=== PATIENT | female | born 1945 | race Caucasian/White ===

== ENCOUNTER → 2016-12-10 | Outpatient (CLI) | payer OTHER ==
[~2016-12-10] MED LIST: IOPAMIDOL (ISOVUE 370) 100 ML BTL IV ONE
== END ==
LOC: FIMAGING 08:09
PROVIDERS: ATTEND Family Medicine
DX: Z12.31 Encounter for screening mammogram for malignant neoplasm of breast (principal)
CPT/HCPCS: G0202; Q9967

== ENCOUNTER → 2017-02-18 | Outpatient (CLI) | payer OTHER | LOC: FIMAGING 09:04 | PROVIDERS: ATTEND Family Medicine | DX: Z13.820 Encounter for screening for osteoporosis (principal); Z78.0 Asymptomatic menopausal state ==

== ENCOUNTER 2017-08-22 11:53 | Day surgery (SDC) | payer OTHER ==
[2017-08-22] MEDS ORDERED: LR 1,000 ML IV ONE (12:09)
[2017-08-22] MEDS ORDERED: LIDOCAINE 1% 2 ML INJ ID PRN (12:09)
--- NOTE | 2017-08-22 12:43 | PDANEPAE ---
ANE History of Present Illness here for colonoscopy ANE Past Medical History - Cardiovascular History Hx Hypertension: Yes Hx Arrhythmias: No Hx Chest Pain: No Hx Coronary Artery / Peripheral Vascular Disease: No Hx CHF / Valvular Disease: No Hx Palpitations: No Cardiovascular History Comment: hyperlipidemia - Pulmonary History Hx COPD: No Hx Asthma/Reactive Airway Disease: No Hx Recent Upper Respiratory Infection: No Hx Oxygen in Use at Home: No Hx Sleep Apnea: Yes Sleep Apnea Screening Result - Last Documented: Positive Pulmonary History Comment: nan positive- instructed pt to bring cpap to hospital. PE 12/2015 - Neurologic History Hx Cerebrovascular Accident: No Hx Seizures: No Hx Dementia: No - Endocrine History Hx Diabetes: No - Renal History Hx Renal Disorders: No Renal History Comment: one kidney is at 60%. hx of kidney infections. [facility] was told "not to worry about it in 2015" - Liver History Hx Hepatic Disorders: No - Neurological & Psychiatric Hx Hx Neurological and Psychiatric Disorders: No - Cancer History Hx Cancer: No - Congenital Disorder History Hx Congenital Disorders: No - GI History Hx Gastrointestinal Disorders: No - Other Health History Other Health History: wears glasses for driving only. glaucoma - Chronic Pain History Chronic Pain: No - Surgical History Prior Surgeries: Bilateral TKA's. appy. tonsillectomy. urethral surgery ANE Review of Systems Review of systems is: negative Review of Systems: - Exercise capacity Exercise capacity: >=4 METS METS (RN): 4 METS ANE Patient History - Allergies Allergies/Adverse Reactions: No Known Allergies Allergy (Verified 07/26/17 11:39) - Home Medications Home medications: home medication list seen and reviewed Home Medications: Herbals/Supplements -Info Only 12/31/15 [Last Taken 08/15/17] Losartan Potassium [Cozaar 25 mg (*)] 12/31/15 [Last Taken 08/22/17 10:00] Simvastatin [Zocor] 12/31/15 [Last Taken 08/21/17 23:00] Triamterene/Hctz 37.5/25 07/26/17 [Last Taken 08/22/17 10:00] Coumadin 07/27/17 [Last Taken 08/18/17] - NPO status NPO Status: no food or drink >8 hours NPO Since - Liquids (Date): 08/22/17 NPO Since - Liquids (Time): 05:00 NPO Since - Solids (Date): 08/21/17 NPO Since - Solids (Time): 09:00 - Anes Hx Anes Hx: no prior problems - Smoking Hx Smoking Status: Never smoked - Family Anes Hx Family Hx Anesthesia Complications: none ANE Labs/Vital Signs - Vital Signs Vital Signs: reviewed preoperatively; see RN documention for details Blood Pressure: 137/79 Heart Rate: 80 Respiratory Rate: 18 O2 Sat (%): 93 Height: 170.18 cm Weight: 90.265 kg ANE Physical Exam - Airway Neck exam: FROM Mallampati Score: Class 2 - Pulmonary Pulmonary: no respiratory distress - Cardiovascular Cardiovascular: regular rate and rhythym - ASA Status ASA Status: II ANE Anesthesia Plan Anesthesia Plan: GA with mask
--- NOTE | 2017-08-22 13:00 | PDGENHP ---
History & Physical Chief Complaint: phx polyps History of Present Illness: 72 year old female presents for surveillance colonosocpy. Hx of polyps Pertinent Past, Social, Family History: PMHx: blood clots, ht, lipids, SOA. pSurgHx: appy, tonsillectomy. FaMHx: No CRC Relevant Physical Exam: HEENT: anicteric. CV: RRR +s1s2. Lungs: CTAB. Abd: soft, nt, + bs Cardiorespiratory Assessment: ASA 3
[2017-08-22] MEDS ORDERED: PROPOFOL/EMULSION 500 MG/50 ML BOTTLE IV ONE (13:08)
[2017-08-22] MEDS ORDERED: NALOXONE HCL 0.4 MG/ML INJ IVP PRN (13:28)
[2017-08-22] MEDS ORDERED: ONDANSETRON 4 MG/2 ML VIAL IVP PRN (13:28)
[2017-08-22] MEDS ORDERED: ALBUTEROL 3 ML DEYVIAL IH PRN (13:28)
[2017-08-22] MEDS ORDERED: fentaNYL 100 MCG/2 ML INJ IVP PRN (13:28)
[2017-08-22] MEDS ORDERED: HYDROmorphONE/DILAUDID 1 MG/ML INJ IVP PRN (13:28)
[2017-08-22 13:52] VITALS: TEMP 98.8
[2017-08-22 14:18] VITALS: O2SAT 96
--- NOTE | 2017-08-22 14:18 | POSTANESTH ---
Post Anesthetic Evaluation Cardiovascular Status: Normal, Stable Respiratory Status: Normal, Stable Level of Consciousness/Mental Status: Can Participate in Eval Pain Control: Adequate, Prn Tx Ordered Nausea/Vomiting Control: Adequate, Prn Tx Ordered Complications Possibly Related to Anesthesia: None Noted
[2017-08-22 14:35] VITALS: RESP 10
[2017-08-22 14:49] VITALS: BP 122/79; PULSE 65
--- NOTE | 2017-08-22 22:35 | GPN ---
[f rep st] PROCEDURE NOTE DATE OF PROCEDURE: 08/22/2017 PROCEDURE: Colonoscopy with biopsy. INDICATION: The patient is a 72-year-old female with a personal history of polyps who presents for surveillance colonoscopy. CONSENT: Risks, benefits, and alternatives of the procedure were discussed in great detail with the patient. Risks of infection, bleeding, perforation, and sedation were discussed. All questions were answered and informed consent was obtained. MEDICATIONS: Propofol. Please see Anesthesia record for details. ESTIMATED BLOOD LOSS: Insignificant. COLONOSCOPIC EVALUATION: A rectal exam was performed and no palpable mass was felt. The scope was advanced into the rectum and advanced to the cecum, where the ileocecal valve and appendiceal orifice were seen. In the sigmoid and descending colon, multiple diverticula were noted. In the transverse colon, a 3 mm polyp was noted and removed by biopsy forceps. IMPRESSION: 1. Transverse colon polyp status post excisional biopsy. 2. Left-sided diverticulosis. . 3. Fiber supplementation. 4. Repeat colonoscopy in 5 years. 5. Follow up on biopsy results. /[id number]/MODL MTDD
== END 2017-08-22 15:24 | disposition home or self-care (01) ==
LOC: FSGY 11:53
PROVIDERS: ATTEND Internal Medicine Gastroenterology
PROC: 0DBL8ZX Excision of Transverse Colon, Via Natural or Artificial Opening Endoscopic, Diagnostic (ICD-10-PCS; principal; 2017-08-22 13:15)
DX: D12.3 Benign neoplasm of transverse colon (principal); K57.30 Diverticulosis of large intestine without perforation or abscess without bleeding; G47.33 Obstructive sleep apnea (adult) (pediatric); E78.5 Hyperlipidemia, unspecified; H40.9 Unspecified glaucoma; Z96.653 Presence of artificial knee joint, bilateral
CPT/HCPCS: J2704